=== PATIENT | female | born 1955 | race American Indian/Alaskan Native ===

== ENCOUNTER 2017-06-15 11:24 | Outpatient (CLI) | payer OTHER ==
--- NOTE | 2017-06-15 16:02 | XRay Report ---
FINAL REPORT EXAM: XR CHEST ROUTINE 2V HISTORY: HYPERTENSION TECHNIQUE: Two views of the chest Comparison: None FINDINGS: Heart size is upper limits normal. There is mild prominence of the pulmonary vascularity of the upper lobes. No pleural effusion. Degenerative change thoracolumbar spine. Aorta is atheromatous. IMPRESSION: Mild pulmonary vascular prominence. No overt heart failure. Findings may be partly related to technique and patient's body habitus. No focal infiltrate.
--- NOTE | 2017-06-16 07:11 | Ultrasound Report ---
FINAL REPORT EXAM: US THRYROID SCAN HISTORY: THYROID TECHNIQUE: Routine sonographic evaluation was obtained of the thyroid gland along with Doppler interrogation of both thyroid lobes. FINDINGS: The right lobe measures 7.1 cm x 2.9 cm x 4.2 cm. The echotexture of the right thyroid lobe is heterogeneous. In the lower pole of the right thyroid lobe is a heterogeneous solid nodule measuring 3.2 cm x 2.6 cm x 3.5 cm. Superior to this in medially is an additional isoechoic solid nodule measuring 3.9 cm x 1.9 cm by 1 cm. An additional smaller slightly hypoechoic nodules seen in the upper pole of the right thyroid lobe measuring 1.1 cm x 0.5 cm by 1.3 cm. The left thyroid lobe measures 6.2 cm x 2.4 cm x 2.2 cm. The echotexture is very heterogeneous. Centrally in the left thyroid lobe is a hyperechoic solid nodule measuring 9 mm x 8 mm x 8 mm. In the left upper pole is an additional hypoechoic solid nodule measuring 1.9 cm x 0.8 cm x 1.4 cm. The isthmus measures 7 mm in thickness. IMPRESSION: Generalized thyromegaly with multinodular goiter. Nuclear medicine I 123 scan is recommended for further evaluation.
--- NOTE | 2017-06-17 10:33 | Mammography Report ---
Bilateral mammogram: CAD study utilized. Findings: Predominance adipose tissue bilaterally. No mass or microcalcification. Benign calcifications left breast. Benign axillary nodes. Impression: Benign findings. Annual followup recommended. BI-RADS CATEGORY: 2 = Benign ACR BI-RADS MAMMOGRAPHIC CODES: 0 = Needs additional imaging evaluation; 1 = Negative; 2 = Benign; 3 = Probably benign; 4 = Suspicious; 5 = Malignant; 6 = Known biopsy-proven malignancy COMMENT: 1. Dense breast tissue, i.e., adenosis, fibrocystic changes, etc., may obscure an underlying neoplasm. 2. Approximately 10% of cancers are not detected with mammography. 3. A negative mammography report should not delay biopsy if a clinically suspicious mass is present. COMMENT: Patient follow-up letters are generated in [employer].
== END 2017-06-15 11:25 | disposition home or self-care (01) ==
LOC: XRAY 11:24
PROVIDERS: ATTEND Family Medicine
DX: Z12.31 Encounter for screening mammogram for malignant neoplasm of breast (principal); I10 Essential (primary) hypertension; E04.2 Nontoxic multinodular goiter; M47.895 Other spondylosis, thoracolumbar region
CPT/HCPCS: 71046; 76536; 77067